=== PATIENT | male | born 1950 | race Caucasian/White ===

== ENCOUNTER 2025-07-31 09:49 | Inpatient (IN) | payer MEDICARE, OTHER, SELFPAY ==
--- NOTE | 2025-07-03 10:36 | CM ---
Addendum entered by Rosangela Arteaga RN 07/03/25 10:57:
Demographics: confirmed
Living situation: lives with Cassy
Support Person Post Operatively: , Cassy
History of
VN: yes, not currently on service
SNF: No
Outpatient: Appointment made at [facility]
Has patient purchased required equipment: yes, walker, cane , tub seat
PCP: Active
Pharmacy: [facility]
Post Operative Discharge Plan: [place], home with outpatient PT.
Original Note:
CM reviewed medical records. CM left message to discuss discharge planning. CM will await call back
[2025-07-07 13:50] VITALS: BMI 26.7
[2025-07-07 14:36] LABS: Hematocrit 38.8 % (39.0-52.0); Hemoglobin 13.1 g/dL (13.0-18.0); Mean Corp Hgb Conc. 33.8 g/dL (33.0-37.0); Mean Corpuscular Volume 91.3 fL (80.0-94.0); Platelet Count 180 10^3/uL (130-400); Red Cell Dist. Width 13.1 % (11.5-14.5)
[2025-07-07 14:43] VITALS: BMI 26.7
[2025-07-07 14:52] LABS: ALT (SGPT) 19 U/L (0-50); AST (SGOT) 26 U/L (17-59); Albumin 4.5 g/dl (3.5-5.0); Alkaline Phosphatase 50 U/L (38-126); Blood Urea Nitrogen 19 mg/dl (9-20); Calcium 9.3 mg/dl (8.4-10.2); Carbon Dioxide 26 mmol/L (22-30); Chloride 104 mmol/L (98-107); Estimated Creatinine Clearance 72 ml/min; Glucose 98 mg/dl (70-99); Potassium 4.8 mmol/L (3.5-5.1); Sodium 137 mmol/L (135-145); Total Protein 6.7 g/dl (6.3-8.2); eGFR > 60.00
[2025-07-08 11:11] LABS: Glycohemoglobin (HgbA1c) 5.7 % (4.0-5.6)
[2025-07-31] VITALS (14 sets, daily range): BP systolic 96–144; BP diastolic 46–70; PULSE 67–72; O2SAT 99; BMI 26.7
[2025-07-31] MEDS: CELEBREX 200 MG PO (09:55)
[2025-07-31] MEDS: TYLENOL 650 MG PO ×3 (09:56→19:48)
[2025-07-31] MEDS: NORMOSOL-R/PLASMALYTE-A 1000 IV ×2 (10:06→17:04)
--- NOTE | 2025-07-31 12:30 | W.PN.ORTHO ---
Today's Communication / Plan
-
d/c when stable
Assessment
.
Dressing:
Clean, dry and intact.
Assessment:
Urinary retention-resume home .8mg Flomax and monitor void
Plan
.
Surgery / Date: R LEODAN Mclaughlin 07/31/25
DVT Prophylaxis: Aspirin
Activity:
Out of bed.
PT/OT
Discharge Plan: Home w/ Outpatient PT
Vital Signs and Labs
.
Vital Signs and Labs:
Lab Results
07/07/25 12:58
07/07/25 12:58
Temp Pulse Resp BP Pulse Ox
98.0 F 72 16 134/66 97
07/31/25 09:49 07/31/25 09:49 07/31/25 09:49 07/31/25 09:49 07/31/25 09:49
--- NOTE | 2025-07-31 12:33 | W.DS.TRANS ---
DC Summary - Water Resources Engineer
-
Discharge Instructions:
Sleep Apnea Risk Low
Discharge Diagnosis/Procedures R LEODAN Mclaughlin 07/31/25
Diet As tolerated
Activity With Walker
Driving Restrictions No driving
Bathing Restrictions OK to Shower
Other Services PT
Instructions:
Stand-Alone Forms: Total Hip/Knee Replacement D/C
Changes to Home Medications: Yes
Discharge Medications:
DC Medications w/original date entered in [employer]
calcium 600 mg (as carbonate)-vitamin D3 5 mcg (200 unit) tablet 1 tab PO DAILY 07/06/25
cholecalciferol (vitamin D3) 25 mcg (1,000 unit) capsule (Vitamin D3) 25 mcg PO DAILY 07/06/25
ezetimibe 10 mg tablet (Zetia) 10 mg PO HS 07/06/25
mupirocin 2 % topical ointment 1 applic topical BID infection prevention #1 tube 07/06/25
rosuvastatin 40 mg tablet (Crestor) 40 mg PO DAILY 07/06/25
tamsulosin 0.4 mg capsule 0.8 mg PO HS 07/06/25
tolnaftate 1 % topical solution (Tolcylen) 1 drp topical DAILY 07/06/25
celecoxib 200 mg capsule 200 mg PO DAILY Anti-inflammatory #14 caps 07/07/25
dexamethasone 4 mg tablet 4 mg PO BID inflammation #6 tabs 07/07/25
famotidine 20 mg tablet 20 mg PO HS GI prophylaxis #30 tabs 07/07/25
gabapentin 300 mg capsule 300 mg PO HS sleep/pain #10 caps 07/07/25
ondansetron 4 mg disintegrating tablet 4 mg PO Q6H PRN n/v #20 tabs 07/07/25
oxycodone 5 mg tablet 5 mg PO Q6H PRN 1 tab moderate pain, 2 tabs severe pain #30 tabs 07/07/25
acetaminophen 650 mg tablet,extended release 1,300 mg (2 x 650 mg) PO TID #0 tabs 07/31/25
aspirin 325 mg tablet 325 mg PO DAILY blood clot prevention #1 tab 07/31/25
docusate sodium 100 mg capsule (Colace) 100 mg PO BID stool softner #1 cap 07/31/25
magnesium hydroxide 400 mg/5 mL oral suspension (Milk of Magnesia) 30 ml PO HS PRN constipation #1 mL 07/31/25
sennosides 8.6 mg tablet (Senokot) 17.2 mg (2 x 8.6 mg) PO BID laxative #2 tabs 07/31/25
Home Medication Changes
mupirocin 2 % topical ointment 1 applic topical BID infection prevention #1 tube 07/06/25
rosuvastatin 40 mg tablet (Crestor) 40 mg PO DAILY 07/06/25
tamsulosin 0.4 mg capsule 0.8 mg PO HS 07/06/25
tolnaftate 1 % topical solution (Tolcylen) 1 drp topical DAILY 07/06/25
celecoxib 200 mg capsule 200 mg PO DAILY Anti-inflammatory #14 caps 07/07/25
dexamethasone 4 mg tablet 4 mg PO BID inflammation #6 tabs 07/07/25
famotidine 20 mg tablet 20 mg PO HS GI prophylaxis #30 tabs 07/07/25
gabapentin 300 mg capsule 300 mg PO HS sleep/pain #10 caps 07/07/25
ondansetron 4 mg disintegrating tablet 4 mg PO Q6H PRN n/v #20 tabs 07/07/25
oxycodone 5 mg tablet 5 mg PO Q6H PRN 1 tab moderate pain, 2 tabs severe pain #30 tabs 07/07/25
acetaminophen 650 mg tablet,extended release 1,300 mg (2 x 650 mg) PO TID #0 tabs 07/31/25
aspirin 325 mg tablet 325 mg PO DAILY blood clot prevention #1 tab 07/31/25
docusate sodium 100 mg capsule (Colace) 100 mg PO BID stool softner #1 cap 07/31/25
magnesium hydroxide 400 mg/5 mL oral suspension (Milk of Magnesia) 30 ml PO HS PRN constipation #1 mL 07/31/25
sennosides 8.6 mg tablet (Senokot) 17.2 mg (2 x 8.6 mg) PO BID laxative #2 tabs 07/31/25
Pending Results: No
[2025-07-31] MEDS: ROXICODONE 5 MG PO (14:40)
[2025-07-31] MEDS: ASPIRIN 325 MG PO (17:04)
[2025-07-31] MEDS: FLOMAX 0.8 MG PO (17:04)
--- NOTE | 2025-07-31 17:40 | PTCARENOTE ---
Pt arrived to [facility] s/p R LEODAN. Right hip dressing with scant sanguineous drainage. Thigh high teds and foot pumps on pt. SR on the monitor. 99% on RA. Admission questions answered. Pt oriented to room and call meza. Bed locked and in lowest
position. Care ongoing.
[2025-07-31] MEDS: SENOKOT 17.2 MG PO (19:48)
[2025-07-31] MEDS: COLACE 100 MG PO (19:48)
[2025-07-31] MEDS: DECADRON 4 MG IV (19:48)
[2025-07-31] MEDS: ANCEF 5 IV (19:48)
[2025-07-31] MEDS: TORADOL 15 MG IV (19:48)
[2025-07-31] MEDS: CRESTOR 40 MG PO (19:49)
[2025-07-31] MEDS: BACTROBAN 2% OINTMENT 1 APPLIC NASAL (19:50)
[2025-07-31] MEDS: NEURONTIN 300 MG PO (21:35)
[2025-07-31] MEDS: PEPCID 20 MG PO (21:35)
[2025-07-31] MEDS: ZETIA 10 MG PO (21:35)
[2025-07-31] MEDS: DILAUDID 0.5 MG IV (22:47)
[2025-08-01] MEDS: TYLENOL PO ×2 (00:14→12:58)
[2025-08-01 03:04] VITALS: BP 102/57
[2025-08-01] MEDS: TYLENOL 650 MG PO ×2 (04:32→08:10)
[2025-08-01] MEDS: ANCEF 5 IV (04:32)
[2025-08-01] MEDS: ROXICODONE 10 MG PO (06:16)
[2025-08-01 07:15] VITALS: BP 121/63
[2025-08-01] MEDS: CELEBREX 200 MG PO (08:09)
[2025-08-01] MEDS: ASPIRIN 325 MG PO (08:10)
[2025-08-01] MEDS: SENOKOT 17.2 MG PO (08:10)
[2025-08-01] MEDS: DECADRON 4 MG IV (08:10)
[2025-08-01] MEDS: CRESTOR 40 MG PO (08:10)
[2025-08-01] MEDS: TORADOL 15 MG IV (08:11)
[2025-08-01] MEDS: COLACE 100 MG PO (08:11)
[2025-08-01] MEDS: BACTROBAN 2% OINTMENT 1 APPLIC NASAL (08:11)
[2025-08-01 09:20] VITALS: BP 117/55; PULSE 72; O2SAT 97
--- NOTE | 2025-08-01 09:20 | CM ---
Addendum entered by Rosangela Arteaga RN 08/01/25 12:27:
CM provided patient with walker script as per PT request.
CM further provided patient with signed Form for Temporary Handicapped placard.
Original Note:
Cm met with patient in room. IMM given. Patent confirmed outpatient appointments with [facility] Kalli Andersen.
PLAN: Home with outpatient PT.
--- NOTE | 2025-08-01 11:18 | W.PN.ORTHO ---
Today's Communication / Plan
-
d/c
Assessment
.
Distal Motor Intact: Yes
Dressing:
Clean, dry and intact.
Assessment:
Urinary retention-resume home .8mg Flomax
--voiding well
Plan
.
Surgery / Date: R LEODAN Mclaughlin 07/31/25
DVT Prophylaxis: Aspirin
Activity:
Out of bed.
PT/OT
Discharge Plan: Home w/ Outpatient PT
Subjective
.
.:
Patient resting comfortably.
Vital Signs and Labs
.
Vital Signs and Labs:
Lab Results
07/07/25 12:58
07/07/25 12:58
Temp Pulse Resp BP Pulse Ox
98.1 F 82 16 121/63 96
08/01/25 07:15 08/01/25 07:15 08/01/25 07:15 08/01/25 07:15 08/01/25 07:15
Non-invasive Hgb result: 10.8
Physical Exam
-
HEENT: No pallor, cyanosis, or jaundice. Throat clear.
NECK: Supple. No JVD.
RESPIRATORY: Lungs clear to auscultation.
CVS: S1, S2 normal. RRR.� No murmur, rub or gallop.
ABDOMEN: Soft, non-tender. No distension. BS+/normal.
EXTREMITIES: strength equal, no calf pain with palpation
REGIONAL MARKETING DIRECTOR: AOx3. No focal deficits. sales appointment coordinator grossly intact
[2025-08-01 11:20] VITALS: BP 140/60
[2025-08-01 12:44] VITALS: BP 120/63; PULSE 69; O2SAT 99
== END 2025-08-01 14:22 | disposition home or self-care (01) | DRG 470 ==
LOC: 2 SOUTH 09:49
PROVIDERS: ADMITTING PHYSICIAN Specialist; FAMILY PHYSICIAN Family Medicine
PROC: 0SR90JA Replacement of Right Hip Joint with Synthetic Substitute, Uncemented, Open Approach (ICD-10-PCS; 2025-07-31)
DX: M16.11 Unilateral primary osteoarthritis, right hip (principal); E78.5 Hyperlipidemia, unspecified; I25.10 Atherosclerotic heart disease of native coronary artery without angina pectoris; C61 Malignant neoplasm of prostate; R33.9 Retention of urine, unspecified; Z92.3 Personal history of irradiation; Z79.82 Long term (current) use of aspirin; Z95.1 Presence of aortocoronary bypass graft
CPT/HCPCS: 36415; 73502; 80053; 83036; 85027; 87070; 97110; 97116; 97163; 97167; 97530; 97535